=== PATIENT | female | born 1970 | race Caucasian/White ===

== ENCOUNTER 2022-08-07 13:24 | Day surgery (SDC) | payer MEDICAID ==
[2022-08-07] MEDS ORDERED: BUPIVACAINE 0.5% VIAL IJ ONE (13:25)
[2022-08-07] MEDS ORDERED: Depo-Medrol 40 MG/ML IM ONE (13:25)
[2022-08-07] MEDS ORDERED: DIPRIVAN 200 MG/20 ML IV ONE (15:13)
[2022-08-07] MEDS ORDERED: Lactated Ringers 1,000 ML IV ONE (16:43)
--- NOTE | 2022-08-07 17:00 | XRAY ---
Indication: Bilateral SI joint injection. Intraoperative fluoroscopy provided for 31 seconds. 4 digital spot images submitted for interpretation demonstrates posterior needle tip projecting over the left and right SI joint. Correlate with intraoperative findings/report.
--- NOTE | 2022-08-07 17:04 | XRAY ---
31 seconds of fluoroscopy was used in surgery for bilateral SI joint injections.
== END 2022-08-07 15:47 | disposition home or self-care (01) ==
LOC: SDC-PAIN 13:24
PROVIDERS: ATTEND Psychiatry & Neurology Pain Medicine
DX: M46.1 Sacroiliitis, not elsewhere classified (principal); Z79.899 Other long term (current) drug therapy
CPT/HCPCS: 27096; 36415; 72202; 77002; 84703; J1030; J2704; G0260

== ENCOUNTER 2022-09-11 14:15 | Day surgery (SDC) | payer MEDICAID, OTHER ==
[2022-09-11] MEDS ORDERED: Xylocaine 1% Vial 30 ML PF IJ ONE (14:16)
[2022-09-11] MEDS ORDERED: DIPRIVAN 200 MG/20 ML IV ONE (15:45)
[2022-09-11] MEDS ORDERED: Lactated Ringers 1,000 ML IV ONE (16:40)
--- NOTE | 2022-09-11 16:49 | XRAY ---
Indication: Bilateral L4-S1 MBB. Intraoperative fluoroscopy provided for 6 seconds. Single digital spot image submitted for interpretation demonstrates posterior needle tips projecting over the expected left and right L4-S1 nerve roots. Correlate with intraoperative findings/report.
--- NOTE | 2022-09-11 16:58 | XRAY ---
6 seconds of fluoroscopy was used in surgery for a bilateral L4-S1 MBB.
== END 2022-09-11 16:20 | disposition home or self-care (01) ==
LOC: SDC-PAIN 14:15
PROVIDERS: ATTEND Psychiatry & Neurology Pain Medicine
DX: M47.816 Spondylosis without myelopathy or radiculopathy, lumbar region (principal); Z79.899 Other long term (current) drug therapy
CPT/HCPCS: 64493; 64494; 72020; 77002; 81025; J2001; J2704

== ENCOUNTER 2023-05-14 12:45 | Day surgery (SDC) | payer OTHER ==
[2023-05-14] MEDS ORDERED: LIDOCAINE HCL 1% 50 MG/5 ML VL PF IJ ONE (12:46)
[2023-05-14] MEDS ORDERED: Decadron 4 MG INJ IV ONE (12:46)
[2023-05-14 12:59] LABS: HCG URINE TEST NEGATIVE (NEGATIVE)
[2023-05-14] MEDS ORDERED: DIPRIVAN 200 MG/20 ML IV ONE (13:46)
[2023-05-14] MEDS ORDERED: MORPHINE SULFATE 2 MG INJ ONE (14:06)
[2023-05-14] MEDS ORDERED: Lactated Ringers 1,000 ML IV ONE (16:01)
--- NOTE | 2023-05-14 16:36 | XRAY ---
Indication: Bilateral piriformis injection. Intraoperative fluoroscopy provided for 23 seconds. 2 digital spot images submitted for interpretation demonstrates posterior needle tip projecting over the expected left and right piriformis muscles. Small amount of contrast injected for needle tip placement. Correlate with intraoperative findings/report.
--- NOTE | 2023-05-14 16:50 | XRAY ---
23 seconds of fluoroscopy was used in surgery for a bilateral piriformis injection.
== END 2023-05-14 14:30 | disposition home or self-care (01) ==
LOC: SDC-PAIN 12:45
PROVIDERS: ATTEND Psychiatry & Neurology Pain Medicine
DX: M46.1 Sacroiliitis, not elsewhere classified (principal); M79.18 Myalgia, other site; Z79.899 Other long term (current) drug therapy
CPT/HCPCS: 20553; 72170; 77002; 81025; J1100; J2001; J2270; J2704; Q9966

== ENCOUNTER 2023-08-27 13:30 | Day surgery (SDC) | payer OTHER ==
[2023-08-27] MEDS ORDERED: BUPIVACAINE 0.5% VIAL IJ ONE (13:31)
[2023-08-27] MEDS ORDERED: Depo-Medrol 40 MG/ML IM ONE (13:31)
[2023-08-27 14:13] LABS: HCG URINE TEST NEGATIVE (NEGATIVE)
[2023-08-27] MEDS ORDERED: DIPRIVAN 200 MG/20 ML IV ONE (15:22)
[2023-08-27] MEDS ORDERED: Lactated Ringers 1,000 ML IV ONE (15:37)
--- NOTE | 2023-08-27 16:45 | XRAY ---
Indication: Left hip and bilateral SI joint injection. Intraoperative fluoroscopy provided for 34 seconds. 7 digital spot images obtained prone submitted for interpretation demonstrates posterior needle tip projecting over the left and right SI joints. Additional needle tip lateral to the left femur neck with small amount of contrast injected for needle tip placement. Correlate with intraoperative findings/report.
--- NOTE | 2023-08-27 16:47 | XRAY ---
34 seconds of fluoroscopy was used in surgery for a left intra-articular hip and bilateral sacroiliac joint injection.
== END 2023-08-27 16:07 | disposition home or self-care (01) ==
LOC: SDC-PAIN 13:30
PROVIDERS: ATTEND Psychiatry & Neurology Pain Medicine
DX: M46.1 Sacroiliitis, not elsewhere classified (principal); M16.12 Unilateral primary osteoarthritis, left hip; Z79.899 Other long term (current) drug therapy
CPT/HCPCS: 01992; 20610; 27096; 73501; 77002; 81025; G0260; J1030; J2704; Q9966

== ENCOUNTER 2023-12-03 13:13 | Day surgery (SDC) | payer OTHER ==
[2023-12-03] MEDS ORDERED: BUPIVACAINE 0.5% VIAL IJ ONE (13:14)
[2023-12-03] MEDS ORDERED: Depo-Medrol 40 MG/ML IM ONE (13:14)
[2023-12-03 13:51] LABS: HCG URINE TEST NEGATIVE (NEGATIVE)
[2023-12-03] MEDS ORDERED: Lactated Ringers 1,000 ML IV ONE (14:42)
[2023-12-03] MEDS ORDERED: DIPRIVAN 200 MG/20 ML IV ONE ×2 (15:13→15:25)
--- NOTE | 2023-12-03 17:02 | XRAY ---
Indication: Bilateral SI joint injection. Intraoperative fluoroscopy provided for 18 seconds. 4 digital spot images submitted for interpretation demonstrates posterior needle tip projecting over left and right SI joint. Small amount of contrast injected for needle tip placement. Correlate with intraoperative findings/report.
--- NOTE | 2023-12-03 17:05 | XRAY ---
Indication: Left hip injection. Intraoperative fluoroscopy provided for 11 seconds. Single digital spot image obtained prone submitted for interpretation demonstrates needle tip projecting lateral to left femur neck. Small amount of contrast injected for needle tip placement. Correlate with intraoperative findings/report.
--- NOTE | 2023-12-03 17:41 | XRAY ---
18 seconds of fluoroscopy was used in surgery for a bilateral sacroiliac joint injection.
--- NOTE | 2023-12-03 17:41 | XRAY ---
11 seconds of fluoroscopy was used in surgery for a left intra-articular hip injection.
== END 2023-12-03 15:48 | disposition home or self-care (01) ==
LOC: SDC-PAIN 13:13
PROVIDERS: ATTEND Psychiatry & Neurology Pain Medicine
DX: M46.1 Sacroiliitis, not elsewhere classified (principal)
CPT/HCPCS: 01992; 20610; 27096; 72202; 73501; 77002; 81025; G0260; J1030; J2704; Q9966

== ENCOUNTER 2023-12-24 15:08 | Day surgery (SDC) | payer OTHER ==
[2023-12-24] MEDS ORDERED: Depo-Medrol 40 MG/ML IM ONE (15:09)
[2023-12-24] MEDS ORDERED: BUPIVACAINE 0.5% VIAL IJ ONE (15:09)
[2023-12-24] MEDS ORDERED: XYLOCAINE-MPF 1% 5ML SDV IJ ONE (15:09)
[2023-12-24 15:25] LABS: HCG URINE TEST NEGATIVE (NEGATIVE)
[2023-12-24] MEDS ORDERED: DIPRIVAN 200 MG/20 ML IV ONE (16:15)
[2023-12-24] MEDS ORDERED: Lactated Ringers 1,000 ML IV ONE (16:29)
[2023-12-24] MEDS ORDERED: MORPHINE SULFATE 2 MG INJ ONE ×2 (16:50→17:20)
[2023-12-24] MEDS ORDERED: TORAdol 30 mg Injection ONE (17:11)
--- NOTE | 2023-12-24 19:35 | XRAY ---
Indication: Right hip and greater trochanter bursa injection. Intraoperative fluoroscopy provided for 25 seconds. 2 digital spot image submitted for interpretation demonstrates needle tip projecting lateral to the right femur neck. Second needle tip lateral to greater trochanter. Small amount of contrast injected for both needle tip placement. Correlate with intraoperative findings/report.
--- NOTE | 2023-12-25 12:16 | XRAY ---
25 seconds of fluoroscopy was used in surgery for a right greater trochanteric bursa and a right intra-articular hip injection.
== END 2023-12-24 17:40 | disposition home or self-care (01) ==
LOC: SDC-PAIN 15:08
PROVIDERS: ATTEND Psychiatry & Neurology Pain Medicine
DX: M16.11 Unilateral primary osteoarthritis, right hip (principal)
CPT/HCPCS: 20610; 73502; 77002; 81025; J1030; J1885; J2270; J2704; Q9966

== ENCOUNTER 2024-05-26 14:01 | Day surgery (SDC) | payer OTHER ==
[2024-05-26] MEDS ORDERED: Depo-Medrol 40 MG/ML IM ONE (14:02)
[2024-05-26] MEDS ORDERED: BUPIVACAINE 0.5% VIAL IJ ONE (14:02)
[2024-05-26 14:37] LABS: HCG URINE TEST NEGATIVE (NEGATIVE)
[2024-05-26] MEDS ORDERED: Lactated Ringers 1,000 ML IV ONE (15:36)
[2024-05-26] MEDS ORDERED: DIPRIVAN 200 MG/20 ML IV ONE (15:41)
--- NOTE | 2024-05-26 16:36 | XRAY ---
Indication: Bilateral SI joint and left hip injection. Intraoperative fluoroscopy provided for 29 seconds. 3 digital spot image obtained prone submitted for interpretation demonstrates posterior needle tips projecting over the expected left and right SI joints. Additional needle tip lateral to left femur neck. Small amount of contrast injected for all needle tip placement. Correlate with intraoperative findings/report.
--- NOTE | 2024-05-26 16:44 | XRAY ---
29 seconds of fluoroscopy was used in surgery for a bilateral sacroiliac joint and left intra-articular hip injection.
== END 2024-05-26 16:10 | disposition home or self-care (01) ==
LOC: SDC-PAIN 14:01
PROVIDERS: ATTEND Psychiatry & Neurology Pain Medicine
DX: M46.1 Sacroiliitis, not elsewhere classified (principal); M16.12 Unilateral primary osteoarthritis, left hip
CPT/HCPCS: 01992; 20610; 27096; 72202; 77002; 81025; G0260; J2704; Q9966

== ENCOUNTER 2024-11-24 12:38 | Day surgery (SDC) | payer OTHER ==
[2024-11-24] MEDS ORDERED: BUPIVACAINE 0.5% VIAL IJ ONE (12:39)
[2024-11-24] MEDS ORDERED: Depo-Medrol 40 MG/ML IM ONE (12:39)
[2024-11-24 13:33] LABS: HCG URINE TEST NEGATIVE (NEGATIVE)
[2024-11-24] MEDS ORDERED: propofoL IV ONE (14:33)
--- NOTE | 2024-11-24 16:32 | XRAY ---
Indication: Bilateral SI joint and greater trochanter bursa injection. Intraoperative fluoroscopy provided for 25 seconds. 4 digital spot image submitted for interpretation demonstrates posterior needle tips projecting over left and right SI joints. Additional needle tips lateral to left/right greater trochanters. Small amount of contrast injected for all needle tip placement. Correlate with intraoperative findings/report.
--- NOTE | 2024-11-24 16:44 | XRAY ---
25 seconds of fluoroscopy was used in surgery for a bilateral sacroiliac joint and greater trochanteric bursa injection.
== END 2024-11-24 15:22 | disposition home or self-care (01) ==
LOC: SDC-PAIN 12:38
PROVIDERS: ATTEND Psychiatry & Neurology Pain Medicine
DX: M46.1 Sacroiliitis, not elsewhere classified (principal); M70.62 Trochanteric bursitis, left hip; M70.61 Trochanteric bursitis, right hip
CPT/HCPCS: 20610; 27096; 73521; 77002; 81025; J2704; Q9966